=== PATIENT | female | born 2000 | race Two or more races ===

== ENCOUNTER 2023-10-10 13:19 | Emergency (ER) | payer OTHER ==
[~2023-10-10] VITALS: Ht 162.6 cm; Wt 72.6 kg
[2023-10-10] MEDS ORDERED: XOPENEX HFA15 GM IH (13:27)
[2023-10-10] MEDS ORDERED: ZOLOFT100 MG PO (13:27)
[2023-10-10] MEDS ORDERED: FLOVENT HFA12 GM IH (13:28)
[2023-10-10 15:20] LABS: HEMATOCRIT 33.8 % (36.0-45.00); HEMOGLOBIN 11.4 g/dL (12.0-15.00); MEAN CELL VOLUME 79.6 fL (80.00-100.00); MEAN CORPUSCULAR HEMOGLOBIN 26.9 pg (27.00-32.0); MEAN CORPUSCULAR HGB CONC 33.8 g/dl (32.0-36.0); PLATELET COUNT 290 K/uL (150-450); RED BLOOD COUNT 4.25 M/uL (4.00-6.00)
== END 2023-10-10 16:39 | disposition home or self-care (01) ==
LOC: ER 13:20
PROVIDERS: General Practice
DX: U07.1 COVID-19 (principal); R05.9 Cough, unspecified; Z91.013 Allergy to seafood